=== PATIENT | female | born 1995 | race Hispanic/Latino ===

== ENCOUNTER 2018-12-03 05:30 | Inpatient (IN) | payer BC, OTHER ==
[2018-12-03] MEDS: Lactated Ringer's 1,000 ML IV SCH ×2 (07:21→13:34)
[2018-12-03 07:44] VITALS: BMI 47.1
[2018-12-03] MEDS ORDERED: NS w/ Oxytocin 10 units 500 ML ONE (07:54)
[2018-12-03] MEDS ORDERED: Penicillin G Potassium 5 MILL.UNITS VIAL ONE (07:55)
[2018-12-03] MEDS ORDERED: HYDROcodone/Acetaminophen 5/325 mg Tablet PO PRN (07:56)
[2018-12-03] MEDS ORDERED: Carboprost 250 MCG/ML AMP IM PRN (07:56)
[2018-12-03] MEDS ORDERED: Misoprostol 200 MCG TAB PR PRN (07:56)
[2018-12-03] MEDS ORDERED: Butorphanol Tartrate 1 MG/ML VIAL SLOW IVP PRN (07:56)
[2018-12-03] MEDS ORDERED: Promethazine HCl 25 MG/ML VIAL IM PRN (07:56)
[2018-12-03] MEDS ORDERED: Lidocaine 1% (PF) 30 ML VIAL SC PRN (07:56)
[2018-12-03] MEDS ORDERED: NS / Oxytocin 40 units/1000ml 1,000 ML IV PRN (07:56)
[2018-12-03] MEDS ORDERED: Acetaminophen 500 MG TAB PO PRN (07:56)
[2018-12-03] MEDS ORDERED: Ondansetron PF 4 MG/2 ML Vial IVP PRN (07:56)
[2018-12-03] MEDS ORDERED: hydrALAZINE 20 MG/ML VIAL SLOW IVP PRN (07:56)
[2018-12-03] MEDS ORDERED: Methylergonovine 0.2 MG/ML VIAL IM PRN (07:56)
[2018-12-03] MEDS ORDERED: Ibuprofen 800 MG TAB PO PRN (07:56)
[2018-12-03] MEDS ORDERED: NS w/ Oxytocin 10 units 500 ML IV SCH (08:00)
[2018-12-03] MEDS ORDERED: Penicillin G Potassium 5 MILL.UNITS in Sodium Chloride 0.9% 100 ML IVPB SCH (08:00)
[2018-12-03 08:22] LABS: Hemoglobin 10.6 g/dL (12.0-16.0); Mean Corpuscular HGB CONC 33.1 g/dL (32.0-36.0); Mean Corpuscular Volume 78.6 fL (78.0-98.0); Mean Platelet Volume 8.9 fL (7.4-10.4); Platelet Count 382 thou/uL (130-400); RBC Distribution Width 13.7 % (11.5-14.5); Red Blood Cell (RBC) Count 4.09 mill/uL (4.20-5.40); White Blood Cell (WBC) Count 10.9 thou/uL (4.8-10.8)
[2018-12-03 09:01] LABS: HBSAg Index 0.32 S/CO (0-0.99); Hep B Surf Ag Non-Reactive S/CO (NonReactive); Syphilis Antibody Nonreactive (Nonreactive); Syphilis Antibody Index 0.06 S/CO (<1.00 Non-Reactive)
[2018-12-03] MEDS: Penicillin G 2.5 MILL.units 2.5 MILL.UNITS in Premix Bag 1 BAG IVPB SCH ×3 (12:08→20:52)
--- NOTE | 2018-12-03 12:42 | PDOC.EVN ---
Event Note - Event Note Event Note: Now on 20 of pitocin. FHT category I. SVE /-2. AROM with clear fluid. FSE placed due to maternal body habitus. No complications. FHT remain category I after AROM. Continue pitocin. May have epidural when uncomfortable.
[2018-12-03] MEDS ORDERED: Lidocaine 1.5%/Epinephrine 1:200,000 5 ML AMPUL IJ ONE (13:28)
[2018-12-03] MEDS: Fentanyl 4 mcg/Bup 0.1% Cadd 100 ML ONE ×2 (14:05→22:23)
[2018-12-03] MEDS ORDERED: Bupivacaine 0.25% HCL 30 ML VIAL ONE (15:00)
[2018-12-03] MEDS ORDERED: Fentanyl 4 mcg/Bup 0.1% Cadd 100 ML ONE (22:18)
--- NOTE | 2018-12-04 00:27 | PDOC.EVN ---
Event Note - Event Note Event Note: CAlled to bedside to assess. Pt off pit and on o2 for concerns of three late appearing decelerations. PT has made progress through the day but little change in decent. 8/80/-2station. straight OP presentation. CAn rotate manually to transverse but not past. BSUS show back at mom's backl. pt returned straigh op with removal on hand pressure on head. vital signs stable. fetus reassuring. Will restart pit, pt placed in deep lateral position. amnioinfusion to assist with previous deep variables. Hopefully fetus rotates and drops in pelvis the above interventions. Plan communicated to Dr Cavazos. She will be in soon for other delivery.
--- NOTE | 2018-12-04 03:20 | PDOC.OPDEL ---
OB Operative/Delivery Note Delivery Dr/Surgeon: Dirk Pre-Delivery Diagnosis: elective induction (40+ weeks) Procedure/Post Delivery Dx: spontaneous vaginal delivery (Complete and pushing. Head delivered. Nuchal cord x1, reduced. Shoulders and body easily followed. Vigorous cry. Mouth and nares bulb suctioned. Kalen nurse present for recurrent variables.) Weeks gestation: 40 Anesthesia: epidural - Findings A Sex: female - 1 min: 9 - 5 min: 9 - Additional Findings/Plan Placenta delivered: spontaneous Repaired Obstetrical Laceration: none Estimated blood loss: 200 Post delivery plan: routine recovery
[2018-12-04] MEDS ORDERED: Milk Of Magnesia 30 ML UDCUP PO PRN (04:59)
[2018-12-04] MEDS ORDERED: hydrALAZINE 20 MG/ML VIAL SLOW IVP PRN (04:59)
[2018-12-04] MEDS ORDERED: NS / Oxytocin 40 units/1000ml 1,000 ML IV SCH (04:59)
[2018-12-04] MEDS ORDERED: Bisacodyl 10 MG SUPP PR PRN (04:59)
[2018-12-04] MEDS ORDERED: HYDROcodone/Acetaminophen 5/325 mg Tablet PO PRN (04:59)
[2018-12-04] MEDS ORDERED: Benzocaine-Menthol 82.5 ML CAN TOP PRN (04:59)
[2018-12-04] MEDS: Ibuprofen 800 MG TAB PO SCH ×3 (06:14→21:38)
[2018-12-04] MEDS: Penicillin G 2.5 MILL.units 2.5 MILL.UNITS in Premix Bag 1 BAG IVPB SCH (06:17)
[2018-12-04] MEDS: Lactated Ringer's 1,000 ML IV SCH (06:17)
[2018-12-04] MEDS: Ferrous Sulfate 325 MG TAB PO SCH ×2 (09:20→17:28)
[2018-12-04] MEDS: Docusate Calcium (SURFAK) 240 MG CAP PO SCH ×2 (09:39→21:38)
[2018-12-05] MEDS: Ibuprofen 800 MG TAB PO SCH (06:00)
[2018-12-05 08:02] VITALS: BP 103/67; TEMP 97.7
[2018-12-05] MEDS ORDERED: Adacel (T-DAP) 0.5 ML SYRINGE IM ONE (09:00)
[2018-12-05] MEDS: Ferrous Sulfate 325 MG TAB PO SCH (09:10)
[2018-12-05] MEDS: Docusate Calcium (SURFAK) 240 MG CAP PO SCH (09:45)
--- NOTE | 2018-12-05 12:15 | PDOC.PP ---
Post Progress Note Post Day #: 1 Subjective: Feeling well. Asking to go home. Breast and bottle feeding. Baby taking both well. Lochia normal. PO intake tolerated: yes Flatus: yes Ambulation: yes Vital Signs (12 hours) Temp Pulse Resp BP Pulse Ox 12/05/18 08:01 97.7 F 65 20 103/67 98 12/05/18 07:45 98 Weight Weight 266 lb - Physical Examination General: NAD Cardiovascular: no m/r/g, RRR Respiratory: clear to auscultation bilaterally, non-labored breathing Abdominal: + bowel sounds, lochia, no distention, appropriately TTP Result Diagrams: 12/03/18 08:09 Additional Labs: Post Labs Blood Type O POSITIVE 12/03/18 08:09 Hep Bs Antigen Non-Reactive S/CO (NonReactive) 12/03/18 08:09 (1) Vaginal delivery Code(s): O80 - ENCOUNTER FOR FULL-TERM UNCOMPLICATED DELIVERY Status: Acute - Assessment/Plan Routine care D/C home F/U in 6 weeks
== END 2018-12-05 13:25 | disposition home or self-care (01) | DRG 807 ==
LOC: L&D 06:32 → 3SW 12-04 05:10
PROVIDERS: ADMIT Family Medicine; ATTEND Family Medicine
PROC: 10E0XZZ Delivery of Products of Conception, External Approach (ICD-10-PCS; principal; 2018-12-04)
PROC: 10907ZC Drainage of Amniotic Fluid, Therapeutic from Products of Conception, Via Natural or Artificial Opening (ICD-10-PCS; 2018-12-04)
PROC: 3E033VJ Introduction of Other Hormone into Peripheral Vein, Percutaneous Approach (ICD-10-PCS; 2018-12-04)
DX: O69.81X0 Labor and delivery complicated by cord around neck, without compression, not applicable or unspecified (principal); Z37.0 Single live birth; Z3A.40 40 weeks gestation of pregnancy; Z23 Encounter for immunization
CPT/HCPCS: 36415; 51702; 76815; 82805; 85027; 86780; 86850; 86900; 86901; 87340; J2210; J2540; J2590; J3490; S0020